=== PATIENT | male | born 1945 | race Caucasian/White ===

== ENCOUNTER 2023-11-17 12:47 | Emergency (ER) | payer MEDICARE ==
[2023-11-17] MEDS ORDERED: HYDROcodone/Acetaminophen 5/325 mg Tablet ONE (14:35)
[2023-11-17] MEDS ORDERED: Ketorolac Tromethamine 30 MG (1 mL) VIAL ONE (14:35)
== END 2023-11-17 15:00 | disposition home or self-care (01) ==
LOC: ERS 12:47
DX: S86.912A Strain of unspecified muscle(s) and tendon(s) at lower leg level, left leg, initial encounter (principal); E11.9 Type 2 diabetes mellitus without complications; I10 Essential (primary) hypertension; K21.9 Gastro-esophageal reflux disease without esophagitis; Z87.891 Personal history of nicotine dependence; Z79.899 Other long term (current) drug therapy; X58.XXXA Exposure to other specified factors, initial encounter
CPT/HCPCS: 73564; J1885; 96372; 99283